=== PATIENT | male | born 1940 | race Caucasian/White ===

== ENCOUNTER 2018-11-19 12:36 | Inpatient (IN) ==
--- NOTE | 2018-11-19 12:39 | Emergency Department Note ---
Disposition Clinical Impression: Elevated troponin, Pre-syncope Disposition: Admitted As Inpatient Condition: Good Referrals: Adeel Cruz MD [Primary Care Provider] - Forms: ED Satisfaction Letter Time of Disposition: 14:56 General Adult HPI - General Stated complaint: weakness Time Seen by Provider: 11/19/18 12:38 Nursing Notes Reviewed: Yes Vital Signs Reviewed: Yes - History of Present Illness HPI Narrative: 78-year-old male presented to emergency department concern for fever and weakness over the last week. Patient states he had a presyncopal event on Thursday. States he felt hot and sweaty and got lightheaded. This resolved and he said no issues since. Patient states that he has had fever as high as 103 for the last several days that has been undulating in nature. Patient endorses a cough and sputum production in the weeks before. He denies any headache, neck stiffness, photophobia. He denies any dysuria, urinary for visit, urgency. He denies abdominal pain, nausea, vomiting. - Related Data Home Medications Medication Instructions Recorded Confirmed Simvastatin [Zocor] 20 mg PO HS 08/24/15 08/24/15 metFORMIN [Glucophage] 1,000 mg PO BIDWM 08/24/15 08/24/15 Previous Rx's Medication Instructions Recorded Guaifenesin [Guaifenesin ER] 1,200 mg PO BID #30 tab.er.12h 08/26/15 Levofloxacin [Levaquin] 750 mg PO DAILY #4 tablet 08/26/15 Hydrocortisone 1% CREAM [Cortaid] 1 appl TP BID #30 g 09/26/15 Jonnathan/Poly/HC *EAR* SUSP 4 drop BOTH EARS QID #10 ml 09/26/15 [Cortisporin *EAR* SUSP] predniSONE [Prednisone] 40 mg PO QAM #10 tablet 09/26/15 Benzonatate [Tessalon] 200 mg PO TID PRN #30 capsule 10/13/16 GuaiFENesin ER [Mucinex] 1,200 mg PO BID #20 tbbp.12hr 10/13/16 cephALEXin [Keflex] 500 mg PO QID #40 capsule 10/13/16 methylPREDNISolone [Medrol] 4 mg PO TAPER #21 tablet 10/13/16 Benzonatate [Tessalon] 200 mg PO TID PRN #30 capsule 01/21/17 Cefdinir [Omnicef] 600 mg PO DAILY #20 capsule 01/21/17 Lidocaine 1 each TP DAILY PRN #15 adh..patch 01/17/18 Allergies Allergy/AdvReac Type Severity Reaction Status Date / Time codeine Allergy passes out Verified 08/23/15 19:55 All systems ED: reviewed and negative except as stated. Review of Systems: As Per HPI Constitutional: Reports: fever, night sweats Cardiovascular: Denies: chest pain Respiratory: Reports: cough, dyspnea Gastrointestinal: Denies: abdominal pain, nausea, vomiting Genitourinary: Denies: dysuria Musculoskeletal: Denies: back pain Integumentary: Denies: rash Neurological: Denies: headache Past Medical History - Past Medical History Attestation: Yes The following information was validated with the patient. Medical history: Reports: coronary artery disease, diabetes, GERD, hyperlipidemia, hypertension, RA, other Psychiatric history: Reports: no psych history - Social History Smoking Status: Never smoker Smokeless Tobacco Status: No Alcohol use: Reports: none Drug use: Reports: none Physical Exam - General Limitations: no limitations General appearance: alert - Head Head exam: normocephalic - Eye Eye exam: Present: EOMI - ENT ENT exam: normal oropharynx - Neck Neck exam: Present: trachea midline - Chest Chest inspection: Present: normal inspection, symmetric chest wall rise - Respiratory Respiratory exam: Present: normal lung sounds bilaterally. Absent: respiratory distress, accessory muscle use - Cardiovascular Cardiovascular exam: Present: bradycardia, irregular rhythm - Abdominal Exam Abdominal exam: Present: soft, Non-Tender. Absent: distention, guarding, rebound - Extremities Exam Extremities exam: Present: normal capillary refill - Back Exam Back exam: Present: full ROM - Neurological Exam Neurological exam: Present: alert, oriented X3 - Psychiatric Psychiatric exam: Present: normal affect, normal mood - Skin Skin exam: Present: warm, dry, intact, normal color. Absent: rash Course Vital Signs Temperature 99.3 F 11/19/18 12:40 Pulse Rate 60 11/19/18 12:40 Respiratory Rate 11/19/18 12:40 Blood Pressure 171/71 11/19/18 12:40 O2 Sat by Pulse Oximetry 95 11/19/18 12:40 Temperature 99.3 F 11/19/18 13:15 Pulse Rate 79 11/19/18 13:56 Respiratory Rate 11/19/18 13:56 Blood Pressure 146/77 11/19/18 13:56 O2 Sat by Pulse Oximetry 97 11/19/18 13:56 Oxygen Delivery Oxygen Delivery Room Air Medical Decision Making - MDM Narrative Medical decision making narrative: 78-year-old male presents emergency department with concern for isolated fever last several days. Patient currently medically stable not in acute distress. Obtain chest x-ray, basic labs, ECG. Patient afebrile here. Patient did not have leukocytosis. Chest x-ray did not reveal any cardiopulmonary abnormality concerning for pneumonia. Patient's urinalysis does not reveal any evidence of urinary tract infection. Patient has no meningeal signs at this time. He is afebrile, not tachycardic, no elevated leukocytosis. We will not obtain blood cultures at this time as there are not warranted. Patient does have an elevated troponin. Coupled with the history of previous syncope and reporting some intermittent chest discomfort, patient to be a dmitted. His chest pain free at this time. Given aspirin. Hemogram crit stable not in any acute distress at the time of admission. Chest X-Ray 11/19/18 00:00 IMPRESSION: No acute process. D/ / Yeyo Núñez MD / Yeyo Núñez MD Interpreting Provider: Yeyo Núñez MD - Lab Data Result diagrams: 11/19/18 13:00 11/19/18 13:00 Lab Results 11/19/18 11/19/18 11/19/18 Range/Units 13:00 13:00 14:00 WBC 5.8 (4.3-11.1) K/mcL RBC 4.83 (4.19-5.50) M/mcL Hgb 14.7 (12.9-16.9) g/dL Hct 42.8 (37.5-50.1) % MCV 88.6 (83.0-100.0) fL MCH 30.4 (28.0-33.3) pg MCHC 34.3 (31.6-35.5) g/dL RDW 12.0 (11.5-14.5) % Plt Count 112 L (140-400) K/mcL MPV 10.4 (9.4-12.4) fL Immature Gran % 0.9 (0-4) % Seg Neutrophils % 78.2 % Lymphocytes % 8.8 % Monocytes % 11.6 % Eosinophils % 0.3 % Basophils % 0.2 % Neutrophils # 4.5 (1.6-8.9) K/mcL Lymphocytes # 0.5 L (0.6-4.6) K/mcL Monocytes # 0.7 (0.0-1.3) K/mcL Eosinophils # 0.0 (0.0-0.6) K/mcL Basophils # 0.0 (0.0-0.2) K/mcL Sodium 130 L (136-145) mEq/L Potassium 4.0 (3.5-5.1) mEq/L Chloride 95 L (98-107) mEq/L Carbon Dioxide 27 (23-29) mEq/L BUN 16 (8-23) mg/dL Creatinine 1.17 (0.70-1.30) mg/dL Est GFR ( Amer) > 60 (> 60) Est GFR (Non-Af Amer) > 60 (> 60) BUN/Creatinine Ratio 14 (6-26) Glucose 286 H (70-105) mg/dL Calculated Osmolality 282 (280-300) Calcium 8.5 L (8.6-10.3) mg/dL Troponin I 0.04 H* (< 0.04) ng/mL TSH 1.416 (0.340-5.600) mcIU/mL Urine Color Dark Yellow (Yellow) Urine Clarity Turbid A (Clear) Urine pH 6.0 (5.0-8.0) pH Units Ur Specific [place] > 1.030 H (1.010-1.025) Urine Protein 100 H (Neg-Trace) mg/dL Urine Glucose (UA) >=1000 H (Normal) mg/dL Urine Ketones Trace H (Negative) mg/dL Urine Blood Trace H (Negative) Urine Nitrite Negative (Negative) Urine Bilirubin Negative (Negative) Urine Urobilinogen Normal (Normal) mg/dL Ur Leukocyte Esterase Negative (Negative) Urine Microscopic RBC 3-5 H (0-3) per hpf Urine Microscopic WBC 5-15 H (0-3) per hpf Ur Squamous Epith Cells Many H (None-Few) per lpf Urine Bacteria None Seen (None-Few) per hpf Hyaline Casts None Seen (None-Few) per lpf Ur Culture Indicated? YES A (NO) - EKG Data EKG #1 EKG attestation: Yes I reviewed and interpreted this EKG. EKG results narrative: 13:14 Heart rate 70 bpm, RI interval 360 ms, QRS duration 118 ms, QT 374 ms, with axis deviation. Sinus rhythm, first-degree AV block with occasional PVCs. No evidence of any ischemic ST changes.
--- NOTE | 2018-11-19 12:50 | Emergency Department Note ---
Disposition Clinical Impression: Elevated troponin, Pre-syncope Disposition: Admitted As Inpatient Condition: Good Time of Disposition: 19:48 General Adult HPI - General Chief complaint: ED Fever Stated complaint: weakness Time Seen by Provider: 11/19/18 12:38 - Related Data Home Medications Medication Instructions Recorded Confirmed No Known Home Drugs 11/19/18 11/19/18 Allergies Allergy/AdvReac Type Severity Reaction Status Date / Time codeine Allergy passes out Verified 08/23/15 19:55 Past Medical History - Past Medical History Medical history: Reports: coronary artery disease, diabetes, GERD, hyperlip idemia, hypertension, RA, other Psychiatric history: Reports: no psych history - Social History Smoking Status: Never smoker Smokeless Tobacco Status: No Alcohol use: Reports: none Drug use: Reports: none Course Vital Signs Temperature 99.3 F 11/19/18 12:40 Pulse Rate 60 11/19/18 12:40 Respiratory Rate 18 11/19/18 12:40 Blood Pressure 171/71 11/19/18 12:40 O2 Sat by Pulse Oximetry 95 11/19/18 12:40 Temperature 97.7 F 11/19/18 18:51 Pulse Rate 64 11/19/18 18:51 Respiratory Rate 16 11/19/18 18:51 Blood Pressure 134/63 11/19/18 18:51 O2 Sat by Pulse Oximetry 96 11/19/18 18:51 Oxygen Delivery Oxygen Delivery Room Air Medical Decision Making - Lab Data Result diagrams: 11/19/18 13:00 11/19/18 13:00 Lab Results 11/19/18 11/19/18 11/19/18 Range/Units 13:00 13:00 14:00 WBC 5.8 (4.3-11.1) K/mcL RBC 4.83 (4.19-5.50) M/mcL Hgb 14.7 (12.9-16.9) g/dL Hct 42.8 (37.5-50.1) % MCV 88.6 (83.0-100.0) fL MCH 30.4 (28.0-33.3) pg MCHC 34.3 (31.6-35.5) g/dL RDW 12.0 (11.5-14.5) % Plt Count 112 L (140-400) K/mcL MPV 10.4 (9.4-12.4) fL Immature Gran % 0.9 (0-4) % Seg Neutrophils % 78.2 % Lymphocytes % 8.8 % Monocytes % 11.6 % Eosinophils % 0.3 % Basophils % 0.2 % Neutrophils # 4.5 (1.6-8.9) K/mcL Lymphocytes # 0.5 L (0.6-4.6) K/mcL Monocytes # 0.7 (0.0-1.3) K/mcL Eosinophils # 0.0 (0.0-0.6) K/mcL Basophils # 0.0 (0.0-0.2) K/mcL Sodium 130 L (136-145) mEq/L Potassium 4.0 (3.5-5.1) mEq/L Chloride 95 L (98-107) mEq/L Carbon Dioxide 27 (23-29) mEq/L BUN 16 (8-23) mg/dL Creatinine 1.17 (0.70-1.30) mg/dL Est GFR ( Amer) > 60 (> 60) Est GFR (Non-Af Amer) > 60 (> 60) BUN/Creatinine Ratio 14 (6-26) Glucose 286 H (70-105) mg/dL Calculated Osmolality 282 (280-300) Calcium 8.5 L (8.6-10.3) mg/dL Troponin I 0.04 H* (< 0.04) ng/mL TSH 1.416 (0.340-5.600) mcIU/mL Urine Color Dark Yellow (Yellow) Urine Clarity Turbid A (Clear) Urine pH 6.0 (5.0-8.0) pH Units Ur Specific [place] > 1.030 H (1.010-1.025) Urine Protein 100 H (Neg-Trace) mg/dL Urine Glucose (UA) >=1000 H (Normal) mg/dL Urine Ketones Trace H (Negative) mg/dL Urine Blood Trace H (Negative) Urine Nitrite Negative (Negative) Urine Bilirubin Negative (Negative) Urine Urobilinogen Normal (Normal) mg/dL Ur Leukocyte Esterase Negative (Negative) Urine Microscopic RBC 3-5 H (0-3) per hpf Urine Microscopic WBC 5-15 H (0-3) per hpf Ur Squamous Epith Cells Many H (None-Few) per lpf Urine Bacteria None Seen (None-Few) per hpf Hyaline Casts None Seen (None-Few) per lpf Ur Culture Indicated? YES A (NO) Attestation Statement - Attestation Attestation: I reviewed the residents documentation and agree with the residents assessment and plan of care. I have personally had face to face time with the patient. (Brief History, Brief Exam, and MDM) I personally supervised and was present for the peña/critical portions of the following procedures completed by the resident: (add procedures performed here). Face to face time provided Patient appears in NAD on exam. He was able to ambulate to the medical treatment room from triage. Triage note and vitals reviewed by me. Patient evaluated in conjunction with the resident physician Dr. Ovalle. I attest to supervising the resident physician's interpretation of the ECG
[2018-11-19] MEDS ORDERED: 0.9 % Sodium Chloride 1,000 ML IVC ONE (12:51)
[2018-11-19 13:15] LABS: Basophils % 0.2 %; Eosinophils % 0.3 %; Hematocrit 42.8 % (37.5-50.1); Hemoglobin 14.7 g/dL (12.9-16.9); Immature Granulocytes % 0.9 % (0-4); Lymphocytes # 0.5 K/mcL (0.6-4.6); Lymphocytes % 8.8 %; Mean Corpuscular HGB Conc 34.3 g/dL (31.6-35.5); Mean Corpuscular Hemoglobin 30.4 pg (28.0-33.3); Mean Corpuscular Volume 88.6 fL (83.0-100.0); Mean Platelet Volume 10.4 fL (9.4-12.4); Monocytes # 0.7 K/mcL (0.0-1.3); Monocytes % 11.6 %; Neutrophils # 4.5 K/mcL (1.6-8.9); Platelet Count 112 K/mcL (140-400); Red Blood Count 4.83 M/mcL (4.19-5.50); Segmented Neutrophils % 78.2 %; White Blood Count 5.8 K/mcL (4.3-11.1)
[2018-11-19 13:31] LABS: BUN/Creatinine Ratio 14 (6-26); Blood Urea Nitrogen 16 mg/dL (8-23); Calcium 8.5 mg/dL (8.6-10.3); Carbon Dioxide 27 mEq/L (23-29); Chloride 95 mEq/L (98-107); Glucose 286 mg/dL (70-105); Osmolality,Calculated 282 (280-300); Sodium 130 mEq/L (136-145); eGFR For African Americans > 60 (> 60); eGFR For Non-African Americans > 60 (> 60)
[2018-11-19 13:52] LABS: Thyroid Stimulating Hormone 1.416 mcIU/mL (0.340-5.600); Troponin I 0.04 ng/mL (< 0.04)
[2018-11-19 14:12] LABS: Bilirubin,Urine Negative (Negative); Blood,Urine Trace (Negative); Clarity,Urine Turbid (Clear); Color,Urine Dark Yellow (Yellow); Glucose,Urine (UA) >=1000 mg/dL (Normal); Ketones,Urine Trace mg/dL (Negative); Leukocyte Esterase,Urine Negative (Negative); Nitrite,Urine Negative (Negative); Protein,Urine 100 mg/dL (Neg-Trace); Specific Gravity,Urine > 1.030 (1.010-1.025); Urobilinogen,Urine Normal (Normal)
[2018-11-19] MEDS ORDERED: Aspirin 81 MG TAB.CHEW PO STA (14:12)
[2018-11-19 14:16] LABS: Bacteria,Urine None Seen per hpf (None-Few); Hyaline Casts,Urine None Seen per lpf (None-Few); Squamous Epithelial Cell,Urine Many per lpf (None-Few)
[2018-11-19] MEDS ORDERED: Ondansetron 4 MG/2 ML VIAL IVP PRN (14:40)
[2018-11-19] MEDS ORDERED: Naloxone 0.4 MG/ML INJ IVP PRN (14:40)
[2018-11-19] MEDS ORDERED: Ipratropium/Albuterol Neb 3 ML IH PRN (14:42)
--- NOTE | 2018-11-19 15:29 | Internal Med History&Physical ---
Date of Encounter: 11/19/18 Time of Encounter: 15:24 Internal Medicine - H&P: HPI Chief complaint: Fever Admitted From: Emergency Dept Plans for Post Hospital Care: Home History of present illness: Mr. Craven is a 78 year old male with no significant past medical history who presented to ER with 5 days history of fever of unknown origin. 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 His temp was 103. He did take Tylenol PM which helped with fever. He has been having on and off fever almost every night. He denied any GI / symptoms. Last night he had fever again with T max 104 which relived with Tylenol. However this morning when he woke up he was so diaphoretic and hiw bed sheets were drenched in his sweat. He denied any SOB. however he does have intermittent sub sternal chest pressure since last 2 days. he did c/o cough and flu like symptoms 2 weeks ago which resolved now. He denied any sick contacts. He also mentioned he lost 10 lbs weight with in last 4 days. Past Med Surg Social Fam HX - Past Medical History Medical history: coronary artery disease, diabetes, GERD, hyperlipidemia, hypertension, RA, other Psychiatric history: no psych history - Past Surgical History Additional surgical history: prostate surgery - Social History Smoking Status: Never smoker Smokeless Tobacco Status: No Alcohol use: none Drug use: none - Additional Family History Additional family history: Family hsitory reviewed and non contribuitory to current problem. Internal Medicine - H&P: Meds No Known Home Drugs 11/19/18 [History] Allergy/AdvReac Type Severity Reaction Status Date / Time codeine Allergy passes out Verified 08/23/15 19:55 All Systems PM: A 10-system review of systems was performed and is negative for pertinent findings except as documented above in the HPI. Review of systems: All the systems are reviewed everything is benign except the systems and symptoms I mentioned in the history of present illness - Constitutional Vitals: Temp Pulse Resp BP Pulse Ox 99.3 F 68 18 132/55 95 11/19/18 13:15 11/19/18 15:02 11/19/18 15:02 11/19/18 15:02 11/19/18 15:02 General appearance: Present: cooperative, A&O X 3, no acute distress, answers questions appropriately Exam: a - Head Head exam: Present: atraumatic, normal inspection - Neck Neck exam general surgery: Present: supple - Respiratory Respiratory exam: Absent: decreased breath sounds, rales, respiratory distress, rhonchi, wheezes - Cardiovascular Cardiovascular exam: Present: RRR, +S1, +S2. Absent: tachycardia - GI/Abdominal GI/Abdominal exam: Present: normal bowel sounds, soft. Absent: rebound, rigid, tenderness - Extremities Exam Extremities exam: Present: normal inspection. Absent: calf tenderness, tenderness - Back Exam Back exam: Absent: CVA tenderness (L), CVA tenderness (R) - Neurological Exam Neurological exam: Present: alert, oriented X3, no focal deficits, strengths equal and symetr throughout. Absent: pronater drift, facial droop, speech deficit - Psychiatric Psychiatric exam: Present: normal affect, normal mood - Skin Skin exam: Absent: rash Internal Med - H&P Results - Labs CBC & Chem 7: 11/19/18 13:00 11/19/18 13:00 Labs: Short CBC 11/19/18 Range/Units 13:00 WBC 5.8 (4.3-11.1) K/mcL Hgb 14.7 (12.9-16.9) g/dL Hct 42.8 (37.5-50.1) % Plt Count 112 L (140-400) K/mcL Neutrophils # 4.5 (1.6-8.9) K/mcL BMP 11/19/18 13:00 Sodium 130 L Potassium 4.0 Chloride 95 L Carbon Dioxide 27 BUN 16 Creatinine 1.17 Glucose 286 H Calcium 8.5 L Cardiac Enzymes 11/19/18 Range/Units 13:00 Troponin I 0.04 H* (< 0.04) ng/mL Urine 11/19/18 Range/Units 14:00 Urine Color Dark Yellow (Yellow) Urine Clarity Turbid A (Clear) Urine pH 6.0 (5.0-8.0) pH Units Ur Specific [place] > 1.030 H (1.010-1.025) Urine Protein 100 H (Neg-Trace) mg/dL Urine Glucose (UA) >=1000 H (Normal) mg/dL - Impressions ITS Impressions Chest X-Ray 11/19/18 00:00 IMPRESSION: No acute process. D/ / Yeyo Núñez MD / Yeyo Núñez MD Interpreting Provider: Yeyo Núñez MD - Assessment and Plan (1) Fever, unknown origin Current Visit: Yes Status: Acute Assessment and plan: Place the pt into tele for observation unclear etiology his WBC - 5.8.. Current temp @ 99.3 I did review his CXR - WNL.. No infiltrates/consolidations noticed UA is slightly abnormal with WBC 5-15 Ordered blood cx x 2 Urine cx - P Will check procalcitonin level for now started him on empirical abx levaquin if his procalcitonin level - WNL, and if we don't find any source of inf, may d/c Abx in AM Ordered CT of chest also check Resp viral panel, strep PNA and Legionella (2) Chest pain Current Visit: Yes Status: Acute Assessment and plan: Atypical CP so far negative trop will trend on trop cont on tele started him on ASA and Nitro PRN will check FLP in AM Qualifiers: Chest pain type: unspecified Qualified Code(s): R07.9 - Chest pain, unspecified (3) Elevated troponin Current Visit: Yes Status: Acute Assessment and plan: Mostly due to demand ischemia EKG did not show any acute ischemic changes will trend on trop (4) Abnormal urinalysis Current Visit: Yes Status: Acute Assessment and plan: will f/u on Urine cx for now started him on empirical abx Levaquin - Time Spent With Patient Total time spent is greater than 50% in coordination of care (as documented) at patient's floor/unit and/or counseling patient:
[2018-11-19] MEDS: 0.9 % Sodium Chloride 1,000 ML IVC SCH ×2 (16:32→23:14)
[2018-11-19] MEDS: levoFLOXacin 750 MG/150 ML 750 MG/150 ML BAG IVPB SCH (16:33)
[2018-11-19 19:24] LABS: Adenovirus Not Detected (Not Detect); Coronavirus 229E Not Detected (Not Detect); Coronavirus HKU1 Not Detected (Not Detect); Coronavirus NL63 Not Detected (Not Detect); Coronavirus OC43 Not Detected (Not Detect); Human Metapneumovirus Not Detected (Not Detect); Human Rhinovirus/Enterovirus Not Detected (Not Detect); Influenza A Subtype 2009 H1 Not Detected (Not Detect)
[2018-11-19 19:25] LABS: Bordetella Pertussis Not Detected (Not Detect); Chlamydophila pneumoniae Not Detected (Not Detect); Influenza A Untypeable Not Detected (Not Detect); Influenza B Not Detected (Not Detect); Mycoplasma pneumoniae Not Detected (Not Detect); Parainfluenza Virus 1 Not Detected (Not Detect); Parainfluenza Virus 2 Not Detected (Not Detect); Parainfluenza Virus 3 Not Detected (Not Detect); Parainfluenza Virus 4 Not Detected (Not Detect); Respiratory Syncytial Virus Not Detected (Not Detect)
[2018-11-20 01:20] LABS: Hematocrit 39.7 % (37.5-50.1); Hemoglobin 13.3 g/dL (12.9-16.9); Mean Corpuscular HGB Conc 33.5 g/dL (31.6-35.5); Mean Corpuscular Hemoglobin 30.5 pg (28.0-33.3); Mean Corpuscular Volume 91.1 fL (83.0-100.0); Mean Platelet Volume 10.1 fL (9.4-12.4); Platelet Count 113 K/mcL (140-400); Red Blood Count 4.36 M/mcL (4.19-5.50); Red Cell Distribution Width 11.9 % (11.5-14.5); White Blood Count 4.8 K/mcL (4.3-11.1)
[2018-11-20] MEDS: Acetaminophen 325 MG TABLET PO PRN ×2 (01:24→19:21)
[2018-11-20 02:23] LABS: BUN/Creatinine Ratio 14 (6-26); Blood Urea Nitrogen 17 mg/dL (8-23); Calcium 8.1 mg/dL (8.6-10.3); Carbon Dioxide 28 mEq/L (23-29); Chloride 96 mEq/L (98-107); Chol/HDL Ratio 6.5 (0-4.9); Cholesterol 149 mg/dL (< 200); Glucose 221 mg/dL (70-105); HDL Cholesterol 23 mg/dL (40-59); LDL Cholesterol,Calculated 65 mg/dL (0-99); Magnesium 1.8 mg/dL (1.6-2.6); Osmolality,Calculated 282 (280-300); Potassium 4.1 mEq/L (3.5-5.1); Sodium 132 mEq/L (136-145); Triglycerides 305 mg/dL (< 150); eGFR For African Americans > 60 (> 60); eGFR For Non-African Americans 59 (> 60)
[2018-11-20] MEDS: levoFLOXacin 750 MG/150 ML 750 MG/150 ML BAG IVPB SCH (09:14)
[2018-11-20] MEDS ORDERED: Regadenoson 0.4 MG/5 ML SYRINGE IVP ONE (10:24)
--- NOTE | 2018-11-20 14:50 | Internal Med Progress Note ---
Hospitalist Progress Note - Encounter Date of Encounter: 11/20/18 Time of Encounter: 14:48 - Subjective Interval History: Patient was seen earlier this morning-he states that he did experience some sweating overnight he has been experiencing night sweats for the past 5 days he also admits that he has lost approximately 10 pounds in the past 4 days. He did have some chest pain on presentation he did undergo her stay of 2 day stress test today. - Exam Vitals: Temp Pulse Resp BP Pulse Ox 97.7 F 63 15 175/68 96 11/20/18 12:16 11/20/18 12:16 11/20/18 12:16 11/20/18 12:16 11/20/18 12:16 Exam: Skin: Free of rash and discoloration. Eyes: Sclera is white. There is no discharge from eyes. ENMT: Oral/pharyngeal mucosa is normal in appearance. There is no discharge from nose or ears. Respiratory: Normal breath sounds with no crackles and wheezes bilaterally. CV: Heart is regular with no gallop or murmur. GI: Abdomen is flat and soft with no palpable mass or visceromegaly. : There is no tenderness in patient's flanks bilaterally. Neuro exam: He has good strength in upper and lower extremities. He has normal eye movements. Psychiatric: He has normal affect. His thought process is appropriate to the situation. - Assessment and Plan (1) Elevated troponin Current Visit: Yes Status: Acute Assessment and Plan: Mostly due to demand ischemia EKG did not show any acute ischemic changes will trend on trop 11/20 Mostly flat adynamic return back to 0.03 no chest pain EKG with no acute ischemic changes most likely demand ischemia (2) Fever, unknown origin Current Visit: Yes Status: Acute Assessment and Plan: Place the pt into tele for observation unclear etiology his WBC - 5.8.. Current temp @ 99.3 I did review his CXR - WNL.. No infiltrates/consolidations noticed UA is slightly abnormal with WBC 5-15 Ordered blood cx x 2 Urine cx - P Will check procalcitonin level for now started him on empirical abx levaquin if his procalcitonin level - WNL, and if we don't find any source of inf, may d/c Abx in AM Ordered CT of chest also check Resp viral panel, strep PNA and Legionella 11/20 Patient had low-grade temperature overnight 99 Chest x-ray with no infiltrates UA is slightly abnormal with white count 5-15 Blood cultures have been ordered Or culture ordered Pro calcitonin level pending CT of chest does show New elongated nodular density in the left lower lobe. Correlate with follow-up imaging. Dependent atelectasis bilaterally without consolidation to suggest pneumonia. Small mediastinal lymph nodes are slightly increased Will need follow-up with pulmonary (3) Chest pain Current Visit: Yes Status: Acute Assessment and Plan: Atypical CP so far negative trop will trend on trop cont on tele started him on ASA and Nitro PRN will check FLP in AM 11/20 Troponin was negative continue with aspirin and nitroglycerin Underwent cardiac stress test first day of 2 day I did review EKG with Dr Hernandez which does show prolong [place] and PVC (4) Abnormal urinalysis Current Visit: Yes Status: Acute Assessment and Plan: will f/u on Urine cx for now started him on empirical abx Levaquin - Time Spent with Patient Total time spent is greater than 50% in coordination of care (as documented) at patient's floor/unit and/or counseling patient: Internal Medicine: Result - Labs CBC & Chem 7: 11/20/18 00:20 11/20/18 00:20 Labs: Short CBC 11/20/18 Range/Units 00:20 WBC 4.8 (4.3-11.1) K/mcL Hgb 13.3 (12.9-16.9) g/dL Hct 39.7 (37.5-50.1) % Plt Count 113 L (140-400) K/mcL BMP 11/20/18 00:20 Sodium 132 L Potassium 4.1 Chloride 96 L Carbon Dioxide 28 BUN 17 Creatinine 1.19 Glucose 221 H Calcium 8.1 L Cardiac Enzymes 11/19/18 11/20/18 11/20/18 Range/Units 19:28 00:20 08:55 Troponin I 0.03 0.04 H* 0.03 (< 0.04) ng/mL - Impressions Impressions Chest CT 11/19/18 15:23 IMPRESSION: New elongated nodular density in the left lower lobe. Correlate with follow-up imaging. Dependent atelectasis bilaterally without consolidation to suggest pneumonia. Small mediastinal lymph nodes are slightly increased D/ / Chava Lewis / Chava Lewis Interpreting Provider: Chava Lewis Consult Discharge Plan - Plan Referrals: Adeel Cruz MD [Primary Care Provider] - (APPT HAS BEEN REQUESTED) (3) Chest pain Qualifiers: Chest pain type: unspecified Qualified Code(s): R07.9 - Chest pain, unspecified
[2018-11-21 05:45] LABS: Basophils % 0.3 %; Eosinophils % 0.3 %; Hemoglobin 13.8 g/dL (12.9-16.9); Immature Granulocytes % 0.7 % (0-4); Lymphocytes # 0.9 K/mcL (0.6-4.6); Mean Corpuscular HGB Conc 33.7 g/dL (31.6-35.5); Mean Corpuscular Hemoglobin 29.9 pg (28.0-33.3); Mean Corpuscular Volume 88.9 fL (83.0-100.0); Mean Platelet Volume 9.9 fL (9.4-12.4); Monocytes # 0.7 K/mcL (0.0-1.3); Monocytes % 11.6 %; Neutrophils # 4.2 K/mcL (1.6-8.9); Platelet Count 136 K/mcL (140-400); Red Blood Count 4.61 M/mcL (4.19-5.50); Red Cell Distribution Width 12.2 % (11.5-14.5); Segmented Neutrophils % 72.1 %; White Blood Count 5.8 K/mcL (4.3-11.1)
[2018-11-21 06:07] LABS: BUN/Creatinine Ratio 13 (6-26); Blood Urea Nitrogen 15 mg/dL (8-23); Calcium 8.3 mg/dL (8.6-10.3); Carbon Dioxide 28 mEq/L (23-29); Chloride 99 mEq/L (98-107); Glucose 240 mg/dL (70-105); Osmolality,Calculated 287 (280-300); Potassium 3.8 mEq/L (3.5-5.1); Sodium 134 mEq/L (136-145); eGFR For African Americans > 60 (> 60); eGFR For Non-African Americans > 60 (> 60)
[2018-11-21] MEDS: levoFLOXacin 750 MG/150 ML 750 MG/150 ML BAG IVPB SCH (09:13)
--- NOTE | 2018-11-21 15:05 | Internal Med Progress Note ---
Hospitalist Progress Note - Encounter Date of Encounter: 11/21/18 Time of Encounter: 15:00 - Subjective Interval History: Patient was seen and examined earlier this morning he did undergo cardiac stress test which was negative for any ischemia or infarct. EF was 54%. I did review EKG with cardiology who is recommending inpatient have cardiac echo completed and if echo is normal he can follow-up with cardiology as outpatient if echo is abnormal would like to see inpatient. Discussed with patient who verbalizes understanding - Exam Vitals: Temp Pulse Resp BP Pulse Ox 98.3 F 60 16 124/71 96 11/21/18 11:51 11/21/18 11:51 11/21/18 11:51 11/21/18 11:51 11/21/18 11:51 Exam: Skin: Free of rash and discoloration. Eyes: Sclera is white. There is no discharge from eyes. ENMT: Oral/pharyngeal mucosa is normal in appearance. There is no discharge from nose or ears. Respiratory: Normal breath sounds with no crackles and wheezes bilaterally. CV: Heart is regular with no gallop or murmur. GI: Abdomen is flat and soft with no palpable mass or visceromegaly. : There is no tenderness in patient's flanks bilaterally. Neuro exam: He has good strength in upper and lower extremities. He has normal eye movements. Psychiatric: He has normal affect. His thought process is appropriate to the situation. - Assessment and Plan (1) Elevated troponin Current Visit: Yes Status: Acute Assessment and Plan: Mostly due to demand ischemia EKG did not show any acute ischemic changes will trend on trop 11/20 Mostly flat adynamic return back to 0.03 no chest pain EKG with no acute ischemic changes most likely demand ischemia 11/21 Cardiac stress test was negative for ischemia or infarct awaiting cardiac echo (2) Fever, unknown origin Current Visit: Yes Status: Acute Assessment and Plan: Place the pt into tele for observation unclear etiology his WBC - 5.8.. Current temp @ 99.3 I did review his CXR - WNL.. No infiltrates/consolidations noticed UA is slightly abnormal with WBC 5-15 Ordered blood cx x 2 Urine cx - P Will check procalcitonin level for now started him on empirical abx levaquin if his procalcitonin level - WNL, and if we don't find any source of inf, may d/c Abx in AM Ordered CT of chest also check Resp viral panel, strep PNA and Legionella 11/20 Patient had low-grade temperature overnight 99 Chest x-ray with no infiltrates UA is slightly abnormal with white count 5-15 Blood cultures have been ordered Or culture ordered Pro calcitonin level pending CT of chest does show New elongated nodular density in the left lower lobe. Correlate with follow-up imaging. Dependent atelectasis bilaterally without consolidation to suggest pneumonia. Small mediastinal lymph nodes are slightly increased Will need follow-up with pulmonary 11/21 No fevers overnight no white count (3) Chest pain Current Visit: Yes Status: Acute Assessment and Plan: Atypical CP so far negative trop will trend on trop cont on tele started him on ASA and Nitro PRN will check FLP in AM 11/20 Troponin was negative continue with aspirin and nitroglycerin Underwent cardiac stress test first day of 2 day I did review EKG with Dr Hernandez which does show prolong SC and PVC 11/21 Cardiac echo pending Cardiac stress test was completed which showed no ischemia or infarct EF 54% Reviewed EKG with cardiology recommending complete echo and if abnormal will see the patient as an patient if echo is normal patient to follow-up with cardiology as outpatient (4) Abnormal urinalysis Current Visit: Yes Status: Acute Assessment and Plan: will f/u on Urine cx for now started him on empirical abx Levaquin - Time Spent with Patient Total time spent is greater than 50% in coordination of care (as documented) at patient's floor/unit and/or counseling patient: Internal Medicine: Result - Labs CBC & Chem 7: 11/21/18 05:26 11/21/18 05:26 Labs: Short CBC 11/21/18 Range/Units 05:26 WBC 5.8 (4.3-11.1) K/mcL Hgb 13.8 (12.9-16.9) g/dL Hct 41.0 (37.5-50.1) % Plt Count 136 L (140-400) K/mcL Neutrophils # 4.2 (1.6-8.9) K/mcL BMP 11/21/18 05:26 Sodium 134 L Potassium 3.8 Chloride 99 Carbon Dioxide 28 BUN 15 Creatinine 1.14 Glucose 240 H Calcium 8.3 L Consult Discharge Plan - Plan Referrals: Adeel Cruz MD [Primary Care Provider] - (APPT HAS BEEN REQUESTED) (3) Chest pain Qualifiers: Chest pain type: unspecified Qualified Code(s): R07.9 - Chest pain, unspecified
[2018-11-22] MEDS: levoFLOXacin 750 MG/150 ML 750 MG/150 ML BAG IVPB SCH (09:08)
--- NOTE | 2018-11-22 10:15 | Pulmonology Consult Note ---
<Carla Mitchell M - Last Filed: 11/22/18 12:26> Date of Encounter: 11/22/18 Medications and Allergies No Known Home Drugs 11/19/18 [History] Allergy/AdvReac Type Severity Reaction Status Date / Time codeine Allergy passes out Verified 11/21/18 13:35 All Systems: The remainder of the systems were reviewed and are negative Physical Examination Vital Signs: Vital Signs, Last 4 Hours Temp Pulse Resp BP Pulse Ox 11/22/18 10:35 97.6 F 64 16 173/81 96 Results - Laboratory Findings CBC and BMP: 11/21/18 05:26 11/22/18 09:40 Abnormal lab findings: Abnormal lab results Plt Count 136 K/mcL (140-400) L 11/21/18 05:26 Lymphocytes # 0.5 K/mcL (0.6-4.6) L 11/19/18 13:00 Sodium 135 mEq/L (136-145) L 11/22/18 09:40 Chloride 97 mEq/L (98-107) L 11/22/18 09:40 Carbon Dioxide 32 mEq/L (23-29) H 11/22/18 09:40 Est GFR (Non-Af Amer) 58 (> 60) L 11/22/18 09:40 Glucose 345 mg/dL (70-105) H 11/22/18 09:40 POC Glucose 265 mg/dL (70-99) H 11/21/18 16:35 Calcium 8.3 mg/dL (8.6-10.3) L 11/21/18 05:26 Troponin I 0.04 ng/mL (< 0.04) H* 11/20/18 00:20 Triglycerides 305 mg/dL (< 150) H 11/20/18 00:20 VLDL Cholesterol, Calc 61 mg/dL (< 31) H 11/20/18 00:20 HDL Cholesterol 23 mg/dL (40-59) L 11/20/18 00:20 Cholesterol/HDL Ratio 6.5 (0-4.9) H 11/20/18 00:20 Procalcitonin 0.23 ng/mL (0.00-0.15) H 11/19/18 19:28 Urine Clarity Turbid (Clear) A 11/19/18 14:00 Ur Specific Temple > 1.030 (1.010-1.025) H 11/19/18 14:00 Urine Protein 100 mg/dL (Neg-Trace) H 11/19/18 14:00 Urine Glucose (UA) >=1000 mg/dL (Normal) H 11/19/18 14:00 Urine Ketones Trace mg/dL (Negative) H 11/19/18 14:00 Urine Blood Trace (Negative) H 11/19/18 14:00 Urine Microscopic RBC 3-5 per hpf (0-3) H 11/19/18 14:00 Urine Microscopic WBC 5-15 per hpf (0-3) H 11/19/18 14:00 Ur Squamous Epith Cells Many per lpf (None-Few) H 11/19/18 14:00 Ur Culture Indicated? YES (NO) A 11/19/18 14:00 - Microbiology Findings Microbiology Findings: Microbiology, Last 48 Hours 11/19/18 14:00 Urine Culture - Final Urine,Clean Catch No growth. - Clinical Findings Intake & Output: Intake & Output 11/21/18 11/22/18 11/22/18 23:59 07:59 15:59 Intake Total 360 / 510 480 / 480 Balance 360 / 510 480 / 480 Weight 121 kg Consult Discharge Plan - Plan Referrals: Adeel Cruz MD [Primary Care Provider] - (APPT HAS BEEN REQUESTED) - Attending Attestation I examined this patient and my medical decision-making was reviewed with the Resident Physician. I agree with the documented findings, disposition and treatment plan as described except to the extent set forth below. Patient seen and examined. Labs, radiology, chart personally reviewed. 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 I have reviewed CT chest personally with primary team and in the presence of the nurse I have reviewed the results with the patient. I have explained to him about different options from monitoring versus biopsy and recommended biopsy since patient has an usual and vague symptoms without diagnosis yet. I have explained to him that lung nodule looking abnormalities in the chest CT scan is small for biopsy and may need CT-guided biopsy. It is not clear at this time whether his symptoms is related to these abnormal CT chest finding and for that reason bronchoscopy is recommended. Patient understand and agreed with plan of care. A bronchoscopy is recommended. The procedure , risks, benefits, complications, and expected outcomes have been reviewed. Benefits of diagnosis, as well as risks to include bleeding, infection, pneumothorax which may require surgical intervention, and in a small population. The patient is aware that sometimes test is nondiagnostic. Discussed with patient and agrees to proceed. Thank you for consultation and we will arrange procedure for the patient tomorrow. Please keep patient nothing by mouth postmidnight. <Nakul Michaud - Last Filed: 11/22/18 17:07> Date of Encounter: 11/22/18 Time of Encounter: 13:30 Assessment and Plan (1) Pneumonia Current Visit: Yes Status: Acute Presented with complaints of fever, shortness of breath, and increased yellow sputum production Currently afebrile No leukocytosis Urine strep and legionella antigens negative Respiratory infectious panel negative CT chest demonstrated new enlongated nodular density in the left lower love, as well as dependent atelectasis, and small increased mediastinal lymph nodes. Continue Levaquin (Day 4) Discussed R/B/A of bronchoscopy with biopsy with the patient in regards to the new density as seen on chest CT. Discussed that while the findings may be infectious in nature, unable to exclude malignancy. Pt agreed to proceed with bronchoscopy. NPO after midnight. Qualifiers: Pneumonia type: due to unspecified organism Laterality: bilateral Lung location: unspecified part of lung Qualified Code(s): J18.9 - Pneumonia, unspecified organism (2) Pulmonary nodule Current Visit: Yes Status: Acute As described on chest CT Suspect this is related to infectious process, but unable to exclude malignancy from differential Plan as above (3) Diabetes mellitus Current Visit: Yes Status: Chronic Management per primary Qualifiers: Diabetes mellitus type: type 2 Diabetes mellitus senior living insulin use: unspecified senior living insulin use status Diabetes mellitus complication status: without complication Qualified Code(s): E11.9 - Type 2 diabetes mellitus without complications (4) Elevated troponin Current Visit: Yes Status: Acute 0.04 -> 0.03 -> 0.04 -> 0.03 Management per primary History of Present Illness Consult date: 11/22/18 Requesting physician: Suyapa Villasenor Reason for consult: abnormal CXR/CT Chief complaint: Fever History of present illness: Mr Craven is a 78M with PMH of CAD, DM2, GERD, and HTN. He was initially admitted on 7/19/19 for complaints of fever. Pt also reported chills, diaphoresis, increased cough, and increased yellow sputum production. Reported home temperature of 103. He also reported unintentional 10 pound weight loss with pitting edema in his LEs which resolved with the weight loss. CXR from the ED showed no acute process. Labs showed no leukocytosis, but did show hyperglycemia as well as a procalcitonin of 0.23. Respiratory infectious panel was negative. Urinalysis was negative for nitrites, leukocyte esterase, or bacteria, but was positive for glucose and trace ketones. CT of the chest was also obtained which demonstrated a "new elongated nodular density in the left lower lobe", as well as dependent atelectasis bilaterally, and small mediastinal lymph nodes which are slightly increased. He was admitted and started on empiric Levaquin for possible pneumonia. Urine strep and legionella antigens were negative. Pt seen and examined at bedside. Denies any new or acute complaints. Symptoms and hospital course as above. Does state he previously would smoke cigarettes on social occasions, but quit 30 years ago. Does report to a family history of lung cancer with 3 of his 11 siblings having lung cancer specifically, but pt also states "they smoked like fre[employer]ammot[employer] trains". Denies any unintentional weight loss other than the abrupt 10 pounds as above. Denies any night sweats, or recent sick contacts. Past Med Surg Social Fam HX - Past Medical History Medical history: coronary artery disease, diabetes, GERD, hyperlipidemia, hypertension, RA, other Psychiatric history: no psych history - Past Surgical History Additional surgical history: prostate surgery - Social History Smoking Status: Never smoker Smokeless Tobacco Status: No Alcohol use: none Drug use: none All Systems: The remainder of the systems were reviewed and are negative - Constitutional Constitutional: chills, fever(s), no night sweats, no weakness - Cardiovascular Cardiovascular: chest pain, dyspnea, dyspnea on exertion, edema, no palpitations - Respiratory Respiratory: cough, dyspnea, dyspnea on exertion, chest congestion, excessive phlegm production, change in phlegm color, no hemoptysis, no wheezing - Gastrointestinal Gastrointestinal: no abdominal pain, no nausea, no vomiting Physical Examination Vital Signs: Vital Signs, Last 4 Hours Temp Pulse Resp BP Pulse Ox 11/22/18 07:04 97.8 F 69 18 136/71 95 General appearance: no acute distress, alert Eyes: nonicteric ENT: oropharynx moist Neck: supple, no JVD Effort: normal Inspection: normal Auscultation: bilateral: clear Cardiovascular: regular rate and rhythm Gastrointestinal: soft, non-tender Integumentary: normal Extremities: no cyanosis, no edema, no clubbing, pink and warm, pulses normal, no ischemia or petechiae Musculoskeletal: no deformities Gait: normal gait, normal posture normal mental status, non-focal exam, pupils equal and round mood appropriate, affect normal Results - Laboratory Findings CBC and BMP: 11/21/18 05:26 11/22/18 09:40 Abnormal lab findings: Abnormal lab results Plt Count 136 K/mcL (140-400) L 11/21/18 05:26 Lymphocytes # 0.5 K/mcL (0.6-4.6) L 11/19/18 13:00 Sodium 134 mEq/L (136-145) L 11/21/18 05:26 Chloride 96 mEq/L (98-107) L 11/20/18 00:20 Est GFR (Non-Af Amer) 59 (> 60) L 11/20/18 00:20 Glucose 240 mg/dL (70-105) H 11/21/18 05:26 POC Glucose 265 mg/dL (70-99) H 11/21/18 16:35 Calcium 8.3 mg/dL (8.6-10.3) L 11/21/18 05:26 Troponin I 0.04 ng/mL (< 0.04) H* 11/20/18 00:20 Triglycerides 305 mg/dL (< 150) H 11/20/18 00:20 VLDL Cholesterol, Calc 61 mg/dL (< 31) H 11/20/18 00:20 HDL Cholesterol 23 mg/dL (40-59) L 11/20/18 00:20 Cholesterol/HDL Ratio 6.5 (0-4.9) H 11/20/18 00:20 Procalcitonin 0.23 ng/mL (0.00-0.15) H 11/19/18 19:28 Urine Clarity Turbid (Clear) A 11/19/18 14:00 Ur Specific Temple > 1.030 (1.010-1.025) H 11/19/18 14:00 Urine Protein 100 mg/dL (Neg-Trace) H 11/19/18 14:00 Urine Glucose (UA) >=1000 mg/dL (Normal) H 11/19/18 14:00 Urine Ketones Trace mg/dL (Negative) H 11/19/18 14:00 Urine Blood Trace (Negative) H 11/19/18 14:00 Urine Microscopic RBC 3-5 per hpf (0-3) H 11/19/18 14:00 Urine Microscopic WBC 5-15 per hpf (0-3) H 11/19/18 14:00 Ur Squamous Epith Cells Many per lpf (None-Few) H 11/19/18 14:00 Ur Culture Indicated? YES (NO) A 11/19/18 14:00 - Microbiology Findings Microbiology Findings: Microbiology, Last 48 Hours 11/19/18 14:00 Urine Culture - Final Urine,Clean Catch No growth. - Diagnostic Findings Chest x-ray: report reviewed, image reviewed CT scan - chest: report reviewed, image reviewed - Clinical Findings Intake & Output: Intake & Output 11/21/18 11/22/18 11/22/18 23:59 07:59 15:59 Intake Total 360 / 510 480 / 480 Balance 360 / 510 480 / 480 Weight 121 kg
[2018-11-22 10:18] LABS: Chloride 97 mEq/L (98-107); Potassium 4.1 mEq/L (3.5-5.1); Sodium 135 mEq/L (136-145)
[2018-11-22 10:23] LABS: BUN/Creatinine Ratio 15 (6-26); Blood Urea Nitrogen 18 mg/dL (8-23); Calcium 9.1 mg/dL (8.6-10.3); Carbon Dioxide 32 mEq/L (23-29); Glucose 345 mg/dL (70-105); Osmolality,Calculated 296 (280-300); eGFR For African Americans > 60 (> 60); eGFR For Non-African Americans 58 (> 60)
--- NOTE | 2018-11-22 10:41 | Electrocardiograph Report ---
[address] [address] Test Date: 2018-11-19 Pat Name: Peña Craven Department: [id number] Room: 3B23 Gender: M Evaluation Specialist: : [id number] Requested By: Blake Ovalle Order Number: [id number] Reading MD: Rufino Hill Measurements Intervals Seeley Rate: 78 P: 208 NM: 368 QRS: -10 QRSD: 118 T: 77 QT: 374 QTc: 426 Interpretive Statements Sinus or ectopic atrial rhythm Multiple premature complexes, vent & supraven Prolonged NM interval Incomplete left bundle branch block Low voltage, precordial leads Electronically Signed On 11-22-2018 10:40:07 EDT by Rufino Hill
--- NOTE | 2018-11-22 10:47 | Internal Med Progress Note ---
Hospitalist Progress Note - Encounter Date of Encounter: 11/22/18 Time of Encounter: 10:43 - Subjective Interval History: Shunt was seen and examined at bedside he has a red rash covering his back denies any pain or itchiness. Was seen by pulmonology recommending bronchoscopy tomorrow morning echocardiogram pending at this time. - Exam Vitals: Temp Pulse Resp BP Pulse Ox 97.6 F 64 16 173/81 96 11/22/18 10:35 11/22/18 10:35 11/22/18 10:35 11/22/18 10:35 11/22/18 10:35 Exam: Skin: Free of rash and discoloration. Eyes: Sclera is white. There is no discharge from eyes. ENMT: Oral/pharyngeal mucosa is normal in appearance. There is no discharge from nose or ears. Respiratory: Normal breath sounds with no crackles and wheezes bilaterally. CV: Heart is regular with no gallop or murmur. GI: Abdomen is flat and soft with no palpable mass or visceromegaly. : There is no tenderness in patient's flanks bilaterally. Neuro exam: He has good strength in upper and lower extremities. He has normal eye movements. Psychiatric: He has normal affect. His thought process is appropriate to the situation. - Assessment and Plan (1) Elevated troponin Current Visit: Yes Status: Acute Assessment and Plan: Mostly due to demand ischemia EKG did not show any acute ischemic changes will trend on trop 11/20 Mostly flat adynamic return back to 0.03 no chest pain EKG with no acute ischemic changes most likely demand ischemia 11/21 Cardiac stress test was negative for ischemia or infarct awaiting cardiac echo 11/22 On adynamic to returning back to baseline for troponins cardiac stress test was negative for any ischemia or infarct-cardiac echo pending (2) Fever, unknown origin Current Visit: Yes Status: Acute Assessment and Plan: Place the pt into tele for observation unclear etiology his WBC - 5.8.. Current temp @ 99.3 I did review his CXR - WNL.. No infiltrates/consolidations noticed UA is slightly abnormal with WBC 5-15 Ordered blood cx x 2 Urine cx - P Will check procalcitonin level for now started him on empirical abx levaquin if his procalcitonin level - WNL, and if we don't find any source of inf, may d/c Abx in AM Ordered CT of chest also check Resp viral panel, strep PNA and Legionella 11/20 Patient had low-grade temperature overnight 99 Chest x-ray with no infiltrates UA is slightly abnormal with white count 5-15 Blood cultures have been ordered Or culture ordered Pro calcitonin level pending CT of chest does show New elongated nodular density in the left lower lobe. Correlate with follow-up imaging. Dependent atelectasis bilaterally without consolidation to suggest pneumonia. Small mediastinal lymph nodes are slightly increased Will need follow-up with pulmonary 11/21 No fevers overnight no white count 11/22 Culture with no growth no fevers overnight no white count Reviewed CT scan with pulmonology whose recommending bronchoscopy-suspect malignancy nothing by mouth after midnight (3) Chest pain Current Visit: Yes Status: Acute Assessment and Plan: Atypical CP so far negative trop will trend on trop cont on tele started him on ASA and Nitro PRN will check FLP in AM 11/20 Troponin was negative continue with aspirin and nitroglycerin Underwent cardiac stress test first day of 2 day I did review EKG with Dr Hernandez which does show prolong TN and PVC 11/21 Cardiac echo pending Cardiac stress test was completed which showed no ischemia or infarct EF 54% Reviewed EKG with cardiology recommending complete echo and if abnormal will see the patient as an patient if echo is normal patient to follow-up with cardiology as outpatient 11/22 Cardiac echo pending Cardiac stress test was completed which showed no ischemia or infarct EF 54% Reviewed EKG with cardiology recommending complete echo and if abnormal will see the patient as an patient if echo is normal patient to follow-up with cardiology as outpatient (4) Abnormal urinalysis Current Visit: Yes Status: Acute Assessment and Plan: Urine culture negative for now started him on empirical abx Levaquin (5) Rash Current Visit: Yes Status: Acute Assessment and Plan: Patient has a red rash covering his shoulders and flank area without any raised bumps denies any urticaria or pain-antibiotics have been stopped rash developed over night will give Benadryl (6) Pulmonary nodule Current Visit: No Status: Acute Assessment and Plan: CT of chest IMPRESSION: New elongated nodular density in the left lower lobe. Correlate with follow-up imaging. Dependent atelectasis bilaterally without consolidation to suggest pneumonia. Small mediastinal lymph nodes are slightly increased Seen by pulmonology-undergo bronchoscopy in the a.m. Suspect malignancy will need possible PET scan as outpatient - Time Spent with Patient Total time spent is greater than 50% in coordination of care (as documented) at patient's floor/unit and/or counseling patient: Internal Medicine: Result - Labs CBC & Chem 7: 11/21/18 05:26 11/22/18 09:40 Labs: BMP 11/22/18 09:40 Sodium 135 L Potassium 4.1 Chloride 97 L Carbon Dioxide 32 H BUN 18 Creatinine 1.21 Glucose 345 H Calcium 9.1 Consult Discharge Plan - Plan Referrals: Adeel Cruz MD [Primary Care Provider] - (APPT HAS BEEN REQUESTED) (3) Chest pain Qualifiers: Chest pain type: unspecified Qualified Code(s): R07.9 - Chest pain, unspecified
[2018-11-22] MEDS ORDERED: Perflutren Lipid Microsphere 1.3 ML in 0.9 % Sodium Chloride 8.7 ML IVP ONE (11:34)
--- NOTE | 2018-11-22 18:24 | Anesthesia Evaluation PreOp ---
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 Other Medical History: Diabetes Type II, GERD Anesthesia History: No Prior Anesthetic Complications, Past Anesthesia (prostate) Alcohol Use: none Drug use: none Medications and Allergies No Known Home Drugs 11/19/18 [History] Allergy/AdvReac Type Severity Reaction Status Date / Time codeine Allergy passes out Verified 11/21/18 13:35 - Meds/Allergy Pre-op Review Medications Reviewed: Yes Allergies Reviewed: Yes Beta Blockers on Current Med List: No Anesthesia Results - Labs 11/21/18 05:26 11/22/18 09:40 - Imaging EKG: report reviewed ( Interpretive Statements Sinus or ectopic atrial rhythm Multiple premature complexes, vent & supraven Prolonged HI interval Incomplete left bundle branch block Low voltage, precordial leads Electronically Signed On 11-22-2018 10:40:07 EDT by Rufino Hill) Additional studies: 11/22/18 Impressions: LVEF 50%. Moderate segmental left ventricular systolic dysfunction. Mild left ventricular diastolic dysfunction. Normal right ventricular size and function. Mild mitral regurgitation. Mild tricuspid regurgitation. Mild pulmonary hypertension. Ordering physician notified via shopa. Impression: 11/20/18 No ischemia or infarct on perfusion study. Technical artifact present (fixed apical and inferior perfusion defect of moderate size and moderate intensity with normal motion and thickening). Stress LVEF 54%. Pharmacologic stress ECG non-diagnostic for ischemia. Occasional PVCs at rest and during stress. Low risk study. Anesthesia Exam Vital Signs/O2 Sat, Most Current Temp Pulse Resp BP Pulse Ox 97.6 F 60 18 170/72 94 11/22/18 15:50 11/22/18 15:50 11/22/18 15:50 11/22/18 15:50 11/22/18 15:50 - HEENT Pupil (Motor): Pupils equal, EOMI Mallampati: III Teeth: Missing (upper and lower) Denture Type: Upper: Complete, Lower: Partial Oral Opening: Greater than 3 - SEWER SYSTEM SUPERVISOR LOC: Oriented SEWER SYSTEM SUPERVISOR Motor: Normal RUE, Normal LUE, Normal RLE, Normal LLE, Normal Face SEWER SYSTEM SUPERVISOR Sensory: Normal: RUE, LUE, RLE, LLE, Face - Cardiac Rhythm: Regular - Pulmonary Breath Sounds: bilateral Clear Respiratory Effort: Symmetrical Anesthesia Assess/Plan ASA Score: 3 Level of consciousness: Cooperative Anesthetic Plan: General Monitoring Plan: Standard Monitors Recovery Plan: PACU
[2018-11-22] MEDS ORDERED: *HR* Dextrose 50 % in Water (Syg) 50 ML SYRINGE IVP PRN (20:56)
[2018-11-22] MEDS ORDERED: Dextrose Gel 15 GM/37.5 ML TUBE PO PRN ×2 (20:56)
[2018-11-22] MEDS ORDERED: D5% in Water 1,000 ML IVC PRN (20:58)
[2018-11-22] MEDS ORDERED: Insulin LISPRO 300 UNITS/3 ML VIAL SQ SCH (21:00)
[2018-11-22] MEDS: *HR* Heparin 5,000 UNIT/ML VIAL SQ SCH (22:10)
[2018-11-23] MEDS: Insulin LISPRO 300 UNITS/3 ML VIAL SQ SCH ×6 (01:26→17:29)
[2018-11-23] MEDS: *HR* Heparin 5,000 UNIT/ML VIAL SQ SCH ×3 (05:25→21:24)
[2018-11-23 07:44] LABS: BUN/Creatinine Ratio 20 (6-26); Blood Urea Nitrogen 22 mg/dL (8-23); Calcium 9.3 mg/dL (8.6-10.3); Carbon Dioxide 28 mEq/L (23-29); Chloride 100 mEq/L (98-107); Glucose 285 mg/dL (70-105); Osmolality,Calculated 296 (280-300); Potassium 4.3 mEq/L (3.5-5.1); Sodium 136 mEq/L (136-145); eGFR For African Americans > 60 (> 60); eGFR For Non-African Americans > 60 (> 60)
[2018-11-23] MEDS ORDERED: Lidocaine -MPF 2% 2 ML VIAL ONE (08:22)
[2018-11-23] MEDS ORDERED: Dexamethasone 4 MG/ML VIAL ONE (08:22)
[2018-11-23] MEDS ORDERED: Ondansetron 4 MG/2 ML VIAL ONE (08:22)
[2018-11-23] MEDS ORDERED: Lidocaine -MPF 4% 5 ML AMPUL ONE (08:23)
[2018-11-23] MEDS ORDERED: *HR* Propofol 200 MG/20 ML VIAL IVP ONE (08:23)
[2018-11-23] MEDS ORDERED: *HR* FentaNYL (PF) 100 MCG/2 ML VIAL ONE (08:23)
[2018-11-23 08:29] LABS: Hematocrit 41.7 % (37.5-50.1); Mean Corpuscular HGB Conc 33.6 g/dL (31.6-35.5); Mean Corpuscular Hemoglobin 29.8 pg (28.0-33.3); Mean Corpuscular Volume 88.7 fL (83.0-100.0); Mean Platelet Volume 9.3 fL (9.4-12.4); Platelet Count 193 K/mcL (140-400); Red Cell Distribution Width 12.1 % (11.5-14.5); White Blood Count 5.2 K/mcL (4.3-11.1)
[2018-11-23] MEDS ORDERED: Ondansetron 4 MG/2 ML VIAL IVP ONE (10:04)
[2018-11-23] MEDS ORDERED: *HR* Promethazine 25 MG/ML VIAL IVP PRN (10:04)
--- NOTE | 2018-11-23 10:30 | Anesthesia Evaluation Post Op ---
Date of Encounter: 11/23/18 Time of Encounter: 10:29 - Vital Signs Vital Signs: Vital Signs/O2 Sat, Most Current Temp Pulse Resp BP Pulse Ox 98.0 F 68 16 141/78 94 11/23/18 10:26 11/23/18 10:26 11/23/18 10:26 11/23/18 10:11/23/18 10:26 - Lungs Lungs: Clear Ascult./Percussion - Airway Airway: Non-obstructed - Cardiovascular Regular Rate - Mental Status Mental Status: Alert & Oriented, Answers Appropriately - Pain Pain Scale: 0 Pain Scale used: Numeric (1 - 10) - Nausea Vomiting Nausea Vomiting: Not Present - Hydration Hydration: NPO, Has not voided - Discharge PostOp Status: Transfer Patient to floor
--- NOTE | 2018-11-23 10:38 | Discharge Summary ---
Orders not resulted at time of discharge: Pending orders 11/19/18 15:57 Culture,Blood [BC] Routine 11/20/18 09:48 NM vero perf SPECT multi [NM] Routine 11/23/18 09:50 AFB Culture, Respiratory [TB] Routine Cell Count w Diff, Body Fluid [BF] Routine Culture,Respiratory [RM] Routine Fungal Culture [MYC] Routine Cytology [PTH] Routine 11/24/18 04:00 BMP [Basic Metabolic Panel] AM 0400 CBC no Diff [Complete Blood Count w/o Diff] [HEME] AM 0400 Date of Encounter: 11/23/18 Time of Encounter: 10:38 - Discharge Diagnosis (1) Pneumonia Status: Acute Qualifiers: Pneumonia type: due to unspecified organism Laterality: bilateral Lung location: unspecified part of lung Qualified Code(s): J18.9 - Pneumonia, unspecified organism (2) Pulmonary nodule Status: Acute (3) Diabetes mellitus Status: Chronic Qualifiers: Diabetes mellitus type: type 2 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 Craven is a 78 year old male - Time Spent with Patient Total time spent providing and/or coordinating discharge services: - Discharge Medications Prescriptions: No Action No Known Home Drugs 1 each .ROUTE AD each Home Medications: No Known Home Drugs 11/19/18 [History] Allergies/Adverse Reactions: Allergy/AdvReac Type Severity Reaction Status Date / Time codeine Allergy passes out Verified 11/21/18 13:35 Date of admission: 11/22/18 11:36 Primary care physician: Adeel Cruz MD Consults: 11/22/18 09:53 Consult to Pulmonology [CONS] Routine Consulting Provider: Pulm Crit Care [facility] Sleep [place] Reason for Consult: lung nodule Time Notified: 09:53 Call Completed: Yes 11/22/18 10:57 Consult to Top Taper Machine [CONS] Routine Reason for SW Consult: HCAP - Constitutional Vitals: Temp Pulse Resp BP Pulse Ox 98.0 F 68 16 141/78 94 11/23/18 10:26 11/23/18 10:26 11/23/18 10:26 11/23/18 10:26 11/23/18 10:26 General appearance: Present: cooperative, A&O X 3, no acute distress, answers questions appropriately - Patient Status Condition: Good - Discharge Instructions Follow Up With: Adeel Cruz MD [Primary Care Provider] - (APPT HAS BEEN REQUESTED)
--- NOTE | 2018-11-23 11:43 | Internal Med Progress Note ---
Hospitalist Progress Note - Encounter Date of Encounter: 11/23/18 Time of Encounter: 11:27 - Subjective Interval History: Patient was seen and examined and bedside- He has a red rash on his back- denies any pain or itchiness He underwent his bronchoscopy this am and tolerated well - Exam Vitals: Temp Pulse Resp BP Pulse Ox 96.7 F L 67 16 174/73 95 11/23/18 10:38 11/23/18 10:38 11/23/18 10:38 11/23/18 10:38 11/23/18 10:38 Exam: Skin: Has red rash with slightly raised areas over back Eyes: Sclera is white. There is no discharge from eyes. ENMT: Oral/pharyngeal mucosa is normal in appearance. There is no discharge from nose or ears. Respiratory: Normal breath sounds with no crackles and wheezes bilaterally. CV: Heart is regular with no gallop or murmur. GI: Abdomen is flat and soft with no palpable mass or visceromegaly. : There is no tenderness in patient's flanks bilaterally. Neuro exam: He has good strength in upper and lower extremities. He has normal eye movements. Psychiatric: He has normal affect. His thought process is appropriate to the situation. - Assessment and Plan (1) Pneumonia Current Visit: Yes Status: Acute Assessment and Plan: Pulmonary consult appreciate recommendations Urine strep and legionella antigens negative respiratory infectious panel negative No leukocytosis he does have some fever shortness of breath increased yellow sputum CT of chest did demonstrate new elongated nodular density in the left lower lobe and dependent atelectasis small increased mediastinal lymph nodes. Pulmonary suspects infectious in nature will undergo bronchoscopy today Continue with Levaquin Day 5 (2) Pulmonary nodule Current Visit: Yes Status: Acute Assessment and Plan: CT of chest IMPRESSION: New elongated nodular density in the left lower lobe. Correlate with follow-up imaging. Dependent atelectasis bilaterally without consolidation to suggest pneumonia. Small mediastinal lymph nodes are slightly increased Seen by pulmonology-undergo bronchoscopy in the a.m. Suspect malignancy will need possible PET scan as outpatient 11/23 Seen by pulmonary suspect infectious in nature and will undergo bronchoscopy Continue with antibiotics (3) Diabetes mellitus Current Visit: Yes Status: Chronic Assessment and Plan: Accu-Cheks before meals at bedtime with sliding scale insulin (4) Elevated troponin Current Visit: Yes Status: Acute Assessment and Plan: Mostly due to demand ischemia EKG did not show any acute ischemic changes will trend on trop 11/20 Mostly flat adynamic return back to 0.03 no chest pain EKG with no acute ischemic changes most likely demand ischemia 11/21 Cardiac stress test was negative for ischemia or infarct awaiting cardiac echo 11/22 On adynamic to returning back to baseline for troponins cardiac stress test was negative for any ischemia or infarct-cardiac echo pending 11/23 Cardiac stress test negative for any ischemia or infarct Cardiac echo with EF of 50% Moderate segmental left ventricular systolic dysfunction. Mild left ventricular diastolic dysfunction. Normal right ventricular size and function. Mild mitral regurgitation. Mild tricuspid regurgitation. Mild pulmonary hypertension. Mostly flat adynamic troponins Follow-up with cardiology as outpatient (5) Rash Current Visit: Yes Status: Acute Assessment and Plan: Patient has a red rash covering his shoulders and flank area red slightly raised areas. Patient states it does not itch or is not painful. We will start on steroids-prednisone 40 mg by mouth twice a day and Benadryl as needed - Time Spent with Patient Total time spent is greater than 50% in coordination of care (as documented) at patient's floor/unit and/or counseling patient: Internal Medicine: Result - Labs CBC & Chem 7: 11/23/18 08:16 11/23/18 06:51 Labs: Short CBC 11/23/18 Range/Units 08:16 WBC 5.2 (4.3-11.1) K/mcL Hgb 14.0 (12.9-16.9) g/dL Hct 41.7 (37.5-50.1) % Plt Count 193 (140-400) K/mcL BMP 11/23/18 06:51 Sodium 136 Potassium 4.3 Chloride 100 Carbon Dioxide 28 BUN 22 Creatinine 1.12 Glucose 285 H Calcium 9.3 - Impressions Impressions Echocardiogram 11/22/18 15:00 Impressions: LVEF 50%. Moderate segmental left ventricular systolic dysfunction. Mild left ventricular diastolic dysfunction. Normal right ventricular size and function. Mild mitral regurgitation. Mild tricuspid regurgitation. Mild pulmonary hypertension. Ordering physician notified via [employer]. Left Ventricular Wall Motion: Rest Echo Findings The mid inferior, basal inferior, mid inferior lateral and basal inferior lateral [place] were hypokinetic. All other wall segments showed normal motion. Findings: Study Quality * Technically adequate exam. ECG Findings * Normal sinus rhythm. Left Ventricle * LVEF 50%. * Normal LV chamber size, wall thickness. * Moderate segmental left ventricular systolic dysfunction. * Mild left ventricular diastolic dysfunction. * There is no LV thrombus. * Definity echo contrast was used. Right Ventricle * Normal right ventricular structure and function. Left Atrium * Normal left atrial size. Right Atrium * Normal right atrial size. Interatrial Septum * Interatrial septum not well evaluated. Aortic Valve * Aortic valve not well visualized. * No aortic stenosis. * No aortic regurgitation. Mitral Valve * Normal mitral valve structure. * No mitral stenosis. * Mild mitral regurgitation. Tricuspid Valve * Normal tricuspid valve structure. * No tricuspid stenosis. * Mild tricuspid regurgitation. * Estimated RVSP is 40 mmHg. * Estimated RA pressure is 3 mmHg. * Mild pulmonary hypertension. Pulmonic Valve * Pulmonic valve is not well visualized. * No pulmonic stenosis. * No pulmonic regurgitation. Aorta * Normally sized aortic root. Pericardium * The pericardium appears normal. IVC * The IVC is not dilated. * > 50% respiratory change Consult Discharge Plan - Plan Referrals: Rufino Hill MD [Partnered Physician] - (Appointment has been requested.) Carla Mitchell MD [Partnered Physician] - (Appointment has been requested.) Adeel Cruz MD [Primary Care Provider] - (APPT HAS BEEN REQUESTED) (1) Pneumonia Qualifiers: Pneumonia type: due to unspecified organism Laterality: bilateral Lung locat ion: unspecified part of lung Qualified Code(s): J18.9 - Pneumonia, unspecified organism (3) Diabetes mellitus Qualifiers: Diabetes mellitus type: type 2 Diabetes mellitus chcf insulin use: unspecified chcf insulin use status Diabetes mellitus complication status: without complication Qualified Code(s): E11.9 - Type 2 diabetes mellitus witho ut complications
[2018-11-23] MEDS ORDERED: *HR* Succinylcholine 200 MG/10 ML VIAL IVP ONE (12:16)
[2018-11-23 13:01] LABS: Source of Body Fluid LLL BAL
[2018-11-23] MEDS: predniSONE 20 MG TABLET PO SCH ×2 (13:09→17:29)
[2018-11-23] MEDS: levoFLOXacin 500 MG TABLET PO SCH (13:09)
[2018-11-23] MEDS ORDERED: Insulin LISPRO 300 UNITS/3 ML VIAL SQ SCH (16:17)
[2018-11-23 16:56] LABS: Appearance of Body Fluid Cloudy (Clear); Volume of Body Fluid 20 mL
[2018-11-24] MEDS: *HR* Heparin 5,000 UNIT/ML VIAL SQ SCH (05:24)
[2018-11-24 06:55] LABS: Hematocrit 42.2 % (37.5-50.1); Hemoglobin 14.1 g/dL (12.9-16.9); Mean Corpuscular HGB Conc 33.4 g/dL (31.6-35.5); Mean Corpuscular Hemoglobin 29.9 pg (28.0-33.3); Mean Corpuscular Volume 89.4 fL (83.0-100.0); Mean Platelet Volume 9.6 fL (9.4-12.4); Platelet Count 245 K/mcL (140-400); Red Blood Count 4.72 M/mcL (4.19-5.50); Red Cell Distribution Width 11.8 % (11.5-14.5); White Blood Count 9.1 K/mcL (4.3-11.1)
[2018-11-24 07:14] LABS: BUN/Creatinine Ratio 19 (6-26); Blood Urea Nitrogen 23 mg/dL (8-23); Calcium 9.2 mg/dL (8.6-10.3); Carbon Dioxide 28 mEq/L (23-29); Chloride 96 mEq/L (98-107); Glucose 390 mg/dL (70-105); Osmolality,Calculated 292 (280-300); Potassium 4.5 mEq/L (3.5-5.1); Sodium 131 mEq/L (136-145); eGFR For African Americans > 60 (> 60); eGFR For Non-African Americans 59 (> 60)
--- NOTE | 2018-11-24 08:24 | Pulmonology Progress Note ---
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 Diabetes mellitus complication status: without complication Qualified Code(s): E11.9 - Type 2 diabetes mellitus without complications (4) Elevated troponin Current Visit: Yes Status: Acute Objective PUL Vital signs: Last Vital Signs Temp 97.5 F L 11/24/18 03:18 Pulse 71 11/24/18 03:18 Resp 16 11/24/18 03:18 BP 119/43 11/24/18 03:18 Pulse Ox 93 11/24/18 03:18 Results - Laboratory Findings CBC and BMP: 11/24/18 05:28 11/24/18 05:28 Abnormal lab findings: Abnormal lab results Plt Count 136 K/mcL (140-400) L 11/21/18 05:26 MPV 9.3 fL (9.4-12.4) L 11/23/18 08:16 Lymphocytes # 0.5 K/mcL (0.6-4.6) L 11/19/18 13:00 Sodium 131 mEq/L (136-145) L 11/24/18 05:28 Chloride 96 mEq/L (98-107) L 11/24/18 05:28 Carbon Dioxide 32 mEq/L (23-29) H 11/22/18 09:40 Est GFR (Non-Af Amer) 59 (> 60) L 11/24/18 05:28 Glucose 390 mg/dL (70-105) H 11/24/18 05:28 POC Glucose 387 mg/dL (70-99) H 11/23/18 20:28 Calcium 8.3 mg/dL (8.6-10.3) L 11/21/18 05:26 Troponin I 0.04 ng/mL (< 0.04) H* 11/20/18 00:20 Triglycerides 305 mg/dL (< 150) H 11/20/18 00:20 VLDL Cholesterol, Calc 61 mg/dL (< 31) H 11/20/18 00:20 HDL Cholesterol 23 mg/dL (40-59) L 11/20/18 00:20 Cholesterol/HDL Ratio 6.5 (0-4.9) H 11/20/18 00:20 Procalcitonin 0.23 ng/mL (0.00-0.15) H 11/19/18 19:28 Urine Clarity Turbid (Clear) A 11/19/18 14:00 Ur Specific [place] > 1.030 (1.010-1.025) H 11/19/18 14:00 Urine Protein 100 mg/dL (Neg-Trace) H 11/19/18 14:00 Urine Glucose (UA) >=1000 mg/dL (Normal) H 11/19/18 14:00 Urine Ketones Trace mg/dL (Negative) H 11/19/18 14:00 Urine Blood Trace (Negative) H 11/19/18 14:00 Urine Microscopic RBC 3-5 per hpf (0-3) H 11/19/18 14:00 Urine Microscopic WBC 5-15 per hpf (0-3) H 11/19/18 14:00 Ur Squamous Epith Cells Many per lpf (None-Few) H 11/19/18 14:00 Ur Culture Indicated? YES (NO) A 11/19/18 14:00 Fluid Appearance Cloudy (Clear) A 11/23/18 09:33 - Microbiology Findings Microbiology Findings: Microbiology, Last 48 Hours 11/23/18 09:33 Fungal Culture - Preliminary Left Lower Lobe Lung Culture is incubating. 11/23/18 09:33 Respiratory Culture - Preliminary Left Lower Lobe Lung - Clinical Findings Intake & Output: Intake & Output 11/23/18 11/24/18 11/24/18 23:59 07:59 15:59 Weight 119.7 kg Consult Discharge Plan - Plan Referrals: Rufino Hill MD [Partnered Physician] - (Appointment has been requested.) Carla Mitchell MD [Partnered Physician] - (Appointment has been requested.) Adeel Cruz MD [Primary Care Provider] - (APPT HAS BEEN REQUESTED)
[2018-11-24] MEDS: Insulin LISPRO 300 UNITS/3 ML VIAL SQ SCH ×2 (09:18→12:20)
[2018-11-24] MEDS: levoFLOXacin 500 MG TABLET PO SCH (09:18)
--- NOTE | 2018-11-24 10:25 | Discharge Summary ---
- NOTES TO OUTPATIENT PROVIDER Notes to Outpatient Provider: f/u with PCP within a week. F/u with Pulm within a week. Orders not resulted at time of discharge: Pending orders 11/19/18 15:57 Culture,Blood [BC] Routine 11/20/18 09:48 NM vero perf SPECT multi [NM] Routine 11/23/18 09:33 AFB Culture, Respiratory [TB] Routine Culture,Respiratory [RM] Routine Fungal Culture [MYC] Routine 11/23/18 09:50 Cytology [PTH] Routine Date of Encounter: 11/24/18 Time of Encounter: 10:33 - Discharge Diagnosis (1) Pneumonia Priority: Primary Status: Acute Qualifiers: Pneumonia type: due to unspecified organism Laterality: bilateral Lung location: unspecified part of lung Qualified Code(s): J18.9 - Pneumonia, unspecified organism (2) Pulmonary nodule Priority: Primary Status: Acute (3) Diabetes mellitus Priority: Secondary Status: Chronic Qualifiers: Diabetes mellitus type: type 2 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 Craven is a 78 year old male with no significant past medical history who presented to ER with 5 days history of fever of unknown origin. Patient stated on Thursday after finishing his work as [employer], he felt feverish with chills. His temp was 103. He did take Tylenol PM which helped with fever. He has been having on and off fever almost every night. He denied any GI / symptoms. Last night he had fever again with T max 104 which relived with Tylenol. However this morning when he woke up he was so diaphoretic and hiw bed sheets were drenched in his sweat. He denied any SOB. however he does have intermittent sub sternal chest pressure since last 2 days. he did c/o cough and flu like symptoms 2 weeks ago which resolved now. He denied any sick contacts. He also mentioned he lost 10 lbs weight with in last 4 days. Patient was placed on IV antibiotics. A CT chest revealed new elongated nodular density in the left lower lobe, dependent atelectasis bilaterally without consolidation, and a small mediastinal lymph node. He also underwent cardiac workup, an echocardiogram showed LV EF 50%, moderate segmental LV systolic dysfunction. A stress test was also performed which revealed no ischemia or infarct. Pulmonology was consulted, patient underwent bronchoscopy with BAL on 11/23/2018. Fever has resolved, as was normal WBC. Patient was treated with bronchodilators and oral steroids. His respiratory symptoms have gradually improved and returned to the baseline on the discharge today. Blood culture and BAL culture has no growth so far. Patient will be discharged home today, he will follow-up with PCP and pulmonology in the next 3-5 days.He will continue to take oral antibiotics for 7 more days. Discharge discussed with: patient Time spent discussing smoking cessation with patient: more than 10 minutes - Time Spent with Patient Total time spent providing and/or coordinating discharge services: Time spent: Greater than 30 minutes - Discharge Medications Prescriptions: New Levofloxacin [Levaquin] 750 mg PO DAILY #7 tablet Lisinopril [Zestril] 5 mg PO DAILY #30 tablet Home Medications: Levofloxacin [Levaquin] 750 mg PO DAILY #7 tablet 11/24/18 [Rx] Lisinopril [Zestril] 5 mg PO DAILY #30 tablet 11/24/18 [Rx] Allergies/Adverse Reactions: Allergy/AdvReac Type Severity Reaction Status Date / Time codeine Allergy passes out Verified 11/21/18 13:35 Date of admission: 11/22/18 11:36 Primary care physician: Adeel Cruz MD Consults: 11/22/18 09:53 Consult to Pulmonology [CONS] Routine Consulting Provider: Pulm [facility] [place] Reason for Consult: lung nodule Time Notified: 09:53 Call Completed: Yes 11/22/18 10:57 Consult to Assistant Professor Of Nursing [CONS] Routine Reason for SW Consult: HCAP Anticipated date of discharge: 11/24/18 - Constitutional Vitals: Temp Pulse Resp BP Pulse Ox 97.5 F L 71 16 119/43 93 11/24/18 03:18 11/24/18 03:18 11/24/18 03:18 11/24/18 03:18 11/24/18 03:18 General appearance: Present: cooperative, A&O X 3, no acute distress, answers questions appropriately Exam: Skin: Has red rash with slightly raised areas over back Eyes: Sclera is white. There is no discharge from eyes. ENMT: Oral/pharyngeal mucosa is normal in appearance. There is no discharge from nose or ears. Respiratory: Normal breath sounds with no crackles and wheezes bilaterally. CV: Heart is regular with no gallop or murmur. GI: Abdomen is flat and soft with no palpable mass or visceromegaly. : There is no tenderness in patient's flanks bilaterally. Neuro exam: He has good strength in upper and lower extremities. He has normal eye movements. Psychiatric: He has normal affect. His thought process is appropriate to the situation. - Patient Status Disposition: Home, Self-Care Condition: Good Functional capacity at discharge: independent ambulation Overall status at discharge: patient is progressing back to baseline - Discharge Instructions Follow Up With: Rufino Hill MD [Partnered Physician] - (Appointment has been requested.) Carla Mitchell MD [Partnered Physician] - (Appointment has been requested.) Adeel Cruz MD [Primary Care Provider] - (APPT HAS BEEN REQUESTED) - Diet and Activity Activity: increase activity as tolerated Diet: low fat, low cholesterol, low salt diet
[2018-11-24 11:22] VITALS: BP 156/67
--- NOTE | 2018-11-24 13:53 | Event Note ---
<Nakul Michaud A - Last Filed: 11/24/18 13:48> Date of Encounter: 11/24/18 Time of Encounter: 13:48 Pt was discharged prior to full evaluation today. He was resting comfortably in bed this morning and denied any dyspnea overnight. SpO2 97% on room air. Reviewed BAL cultures which currently have no growth. ISSA during bronchoscopy was suggestive of benign appearing lymphoid tissue Final pathology results pending Pt will require follow up with air quality chemist as outpatient in approximately 1 week. <Carla Mitchell M - Last Filed: 11/24/18 14:09> Date of Encounter: 11/24/18 I examined this patient and my medical decision-making was reviewed with the Resident Physician. I agree with the documented findings, disposition and treatment plan as described except to the extent set forth below. Patient seen and examined. Labs, radiology, chart personally reviewed. 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
--- NOTE | 2018-11-24 15:27 | Electrocardiograph Report ---
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
--- NOTE | 2018-11-24 15:55 | Electrocardiograph Report ---
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
== END 2018-11-24 13:35 | disposition home or self-care (01) | DRG 194 ==
LOC: 3BNU 12:36 → EMEROOARM 12:36 → 3BNU 15:57
PROVIDERS: ADMIT Student in an Organized Health Care Education/Training Program; ATTEND Student in an Organized Health Care Education/Training Program